=== PATIENT | female | born 1965 | race Caucasian/White ===

== ENCOUNTER 2018-12-06 19:30 | Observation (INO) ==
[2018-12-06] MEDS ORDERED: ALBUT/IPRATROP 3MG/0.5MG NEB 3 ML VIAL INH STA (19:58)
--- NOTE | 2018-12-06 20:27 | XRay Report ---
XR chest 1V portable CLINICAL HISTORY: 53 years-old Female presenting with dyspnea. TECHNIQUE: Portable upright AP view of the chest was obtained. COMPARISON: None. FINDINGS: Cardiac silhouette mildly enlarged. Pulmonary vascular prominence. No focal opacity. No large effusio n or pneumothorax. Osseous structures normal. Upper abdomen normal. IMPRESSION: 1. Mild cardiomegaly and volume overload. No paolo pulmonary edema. Electronically signed by: Obinna Zhao M.D. 12/06/2018 8:25 PM
--- NOTE | 2018-12-06 21:17 | Emergency Department Note ---
Entered by Kika Lau acting as a scribe for History of Present Illness General Chief complaint: Shortness of Breath/Dyspnea Stated complaint: SOB Source: patient and family Mode of arrival: ambulatory Limitations: no limitations History of Present Illness Provider complaint: shortness of breath Onset (ago): hour(s) (earlier today) Location: chest Pain Consistency: + other (episode) Quality: + other (shortness of breath) The patient is a 53 year old female who presents to the Emergency Room with complaints of an episode of shortness of breath that occurred earlier today. The patients group social worker at bedside reports that the she found the patient on the floor in severe distress. Per group social worker, the patient lives with her sister who smokes 3 packs of cigarettes a day, inside the home. The group social worker also states that the patient was not experiencing cold-like symptoms earlier today. Home Medications Home Medications Medication Instructions Recorded Confirmed Type No Known Home Medications 12/06/18 12/06/18 History albuterol sulfate [Ventolin HFA] 2 puff INHALATION Q6 7 Days #1 gm 12/08/18 Rx guaifenesin [Mucinex] 600 mg PO Q12 7 Days #14 tab 12/08/18 Rx lisinopril [Zestril] 10 mg PO QAM 30 Days #30 tab 12/08/18 Rx Allergies Allergy/AdvReac Type Severity Reaction Status Date / Time No Known Allergies Allergy Verified 12/06/18 22:28 NONE ALL TO MERSALINE Allergy Unknown . Uncoded 12/06/18 22:28 STICHES -THEY COME OUT, ARE REJECTED Past Med/Surg History Medical History Intellectual disability Obesity (Chronic) Surgical History S/P hysterectomy done when patient was a teenager for tumor S/P knee surgery Social History Preferred Language: Angolan Beliefs That Will Affect Care: None marital status: Single Current Living Situation: Family current occupational status: disabled Feels Safe at Home: Yes Safety Concerns: Feels Safe At This Time Smoking Status: Never smoker Hx Alcohol Use: No Hx Substance Use: No Review of Systems See HPI for pertinent positives & negatives. and A total of 10 systems reviewed and were otherwise negative Physical Exam Vital Signs Vital Signs - 24 hr 12/07/18 19:41 12/07/18 23:00 12/07/18 23:22 Temperature 37.0 C 36.7 C Temperature Source Oral Oral Pulse Rate Pulse Rate [Apical] Pulse Rate [Brachial] Pulse Rate [Finger] 59 L 47 L Pulse Rhythm [Brachial] Pulse Strength [Brachial] Respiratory Rate 18 20 Respiratory Effort / Characteristics Non-Labored Spontaneous Respiratory Depth Normal Respiratory Pattern Regular Blood Pressure [Left Arm] 122/70 Blood Pressure [Right Arm] 133/78 Blood Pressure Mean [Left Arm] 87 Blood Pressure Mean [Right Arm] 96 Blood Pressure Position [Left Arm] Lying Blood Pressure Position [Right Arm] Lying Pulse Oximetry 94 92 Oxygen Delivery Method Room Air Room Air Room Air 12/08/18 00:57 12/08/18 04:00 12/08/18 07:49 Temperature 36.6 C 36.5 C Temperature Source Oral Oral Pulse Rate 47 L Pulse Rate [Apical] Pulse Rate [Brachial] 47 L Pulse Rate [Finger] 61 Pulse Rhythm [Brachial] Regular Pulse Strength [Brachial] Normal Respiratory Rate 18 16 Respiratory Effort / Characteristics Non-Labored Spontaneous Respiratory Depth Normal Respiratory Pattern Regular Blood Pressure [Left Arm] 154/74 H 127/75 Blood Pressure [Right Arm] Blood Pressure Mean [Left Arm] 100 92 Blood Pressure Mean [Right Arm] Blood Pressure Position [Left Arm] Lying Sitting Blood Pressure Position [Right Arm] Pulse Oximetry 94 92 Oxygen Delivery Method Room Air 12/08/18 09:50 12/08/18 11:57 Temperature 36.5 C Temperature Source Pulse Rate Pulse Rate [Apical] 67 Pulse Rate [Brachial] 47 L Pulse Rate [Finger] 61 Pulse Rhythm [Brachial] Pulse Strength [Brachial] Normal Respiratory Rate 16 Respiratory Effort / Characteristics Respiratory Depth Respiratory Pattern Blood Pressure [Left Arm] 127/75 Blood Pressure [Right Arm] 133/78 Blood Pressure Mean [Left Arm] Blood Pressure Mean [Right Arm] Blood Pressure Position [Left Arm] Blood Pressure Position [Right Arm] Pulse Oximetry 92 Oxygen Delivery Method Vital signs reviewed. General: Well-appearing, obese, in no significant distress. HEENT: No scleral icterus, PERRLA, neck supple. Atraumatic. Cardiovascular: Regular rate and rhythm, no extra sounds. Pulmonary: Wheezing bilaterally, normal work of breathing. Abdomen: Soft, nontender, nondistended, positive bowel sounds. Musculoskeletal: Atraumatic, minimal peripheral edema. Neurologic: Patient awake alert and oriented x 3, full strength in all 4 extremities. Cranial nerves 2 through 12 grossly intact. Skin: Warm, dry, no rash Course 1955: Past medical records reviewed. The patient was evaluated in room C3, and a complete history and physical examination were performed. 2225: I reviewed the patient's case with Dr. Llanos - [facility] Hospitalist. She will evaluate the patient for further management. Administered Medications Discontinued Medications Albuterol (Duoneb) 3 ml INH NOW STA Stop: 12/06/18 19:59 Last Admin: 12/06/18 20:13 Dose: 3 ml Documented by: [id number] Aspirin (Aspirin) 324 mg PO NOW STA Stop: 12/06/18 22:10 Last Admin: 12/06/18 22:23 Dose: 324 mg Documented by: [id number] Furosemide (Lasix) 40 mg IV NOW STA Stop: 12/06/18 22:10 Last Admin: 12/06/18 22:23 Dose: 40 mg Documented by: [id number] Hydralazine HCl (Apresoline) 25 mg PO NOW STA Stop: 12/06/18 20:01 Last Admin: 12/06/18 20:13 Dose: 25 mg Documented by: [id number] Sodium Phosphate 15 mmol/ (Sodium Chloride) 255 mls @ 88 mls/hr IV ONE ONE Stop: 12/07/18 10:23 Last Infusion: 12/07/18 11:33 Dose: 0 mls/hr Documented by: [id number] Admin: 12/07/18 08:20 Dose: 88 mls/hr Documented by: [id number] Influenza Virus Vaccine Quadrival (Flucelvax Quad Vaccine) 0.5 ml IM .ONCE ONE Stop: 12/07/18 08:31 Last Admin: 12/08/18 07:18 Dose: Not Given Documented by: [id number] Lisinopril (Zestril) 10 mg PO QA SHEKHAR Stop: 01/06/19 13:59 Last Admin: 12/08/18 08:36 Dose: 10 mg Documented by: [id number] Admin: 12/07/18 15:36 Dose: 10 mg Documented by: [id number] Perflutren Lipid Microsphere (Definity) 2 ml IV ONCE ONE Stop: 12/07/18 07:53 Last Admin: 12/07/18 07:53 Dose: 2 ml Documented by: [id number] Medical Decision Making Differential Diagnosis Differential diagnoses includes but is not limited to pneumonia, bronchitis, COPD/Asthma exacerbation, pneumothorax, pulmonary embolism, congestive heart failure, and acute coronary syndrome. Medical Records Attestation: I reviewed the patient's medical records. Home Medications Current Medication List: was personally reviewed by me Laboratory Data Attestation: I reviewed the patient's lab results. Result diagrams: 12/07/18 06:45 12/07/18 06:45 Lab Results 12/06/18 12/06/18 12/06/18 Range/Units 21:20 21:20 21:20 WBC 9.71 (4.8-10.8) K/uL RBC 4.69 (4.2-5.4) M/uL Hgb 13.3 (12.0-16.0) g/dL Hct 40.9 (37-47) % MCV 87.2 (80-100) fL MCH 28.4 (25-34) pg MCHC 32.5 (32-36) g/dL RDW Std Deviation 48.0 H (36.4-46.3) fL RDW Coeff of Gabe 15.2 H (11.5-14.5) % Plt Count 162 (130-400) K/uL MPV 10.2 (7.4-10.4) fL Immature Gran % (Auto) 0.4 % Neut % (Auto) 77.5 % Lymph % (Auto) 17.6 % [place] % (Auto) 3.7 % Eos % (Auto) 0.7 % Baso % (Auto) 0.1 % Immature Gran # (Auto) 0.04 H (0.00-0.02) K/uL Neut # (Auto) 7.52 H (1.4-6.5) K/uL Lymph # (Auto) 1.71 (1.2-3.4) K/uL [place] # (Auto) 0.36 (0.11-0.59) K/uL Eos # (Auto) 0.07 (0-0.5) K/uL Baso # (Auto) 0.01 (0-0.2) K/uL Sodium 142 (136-145) mmol/L Potassium 4.4 (3.5-5.1) mmol/L Chloride 113 H (98-107) mmol/L Carbon Dioxide 26 (21-32) mmol/L Anion Gap 4.0 (3-11) BUN 17 (7-18) mg/dl Creatinine 0.64 (0.6-1.2) mg/dl Est Cr Clr Drug Dosing 132.1 ml/min Est GFR ( Amer) 118.9 Est GFR (Non-Af Amer) 102.6 BUN/Creatinine Ratio 26.1 H (10-20) Glucose 112 H (70-99) mg/dl POC Glucose (70-99) Estimat Average Glucose 117 mg/dl Hemoglobin A1c 5.7 H (4.5-5.6) % Calcium 8.1 L (8.5-10.1) mg/dl Phosphorus (2.5-4.9) mg/dl Magnesium (1.8-2.4) mg/dl Total Bilirubin 0.2 (0.2-1) mg/dl AST 20 (15-37) U/L ALT 25 (12-78) U/L Alkaline Phosphatase 108 (45-117) U/L Troponin I 0.054 H* (0-0.045) ng/ml Total Protein 7.6 (6.4-8.2) gm/dl Albumin 3.3 L (3.4-5.0) gm/dl Globulin 4.3 H (2.5-4.0) gm/dl Albumin/Globulin Ratio 0.8 L (0.9-2) Triglycerides (0-150) mg/dl Cholesterol (0-200) mg/dl LDL Cholesterol, Calc mg/dl VLDL Cholesterol, Calc mg/dl HDL Cholesterol mg/dl Cholesterol/HDL Ratio TSH (0.300-4.500) uIu/ml Random Cortisol mcg/dl Specimen Hemolysis 12/06/18 12/07/18 12/07/18 Range/Units 21:20 06:45 06:45 WBC 7.36 (4.8-10.8) K/uL RBC 4.65 (4.2-5.4) M/uL Hgb 13.2 (12.0-16.0) g/dL Hct 40.4 (37-47) % MCV 86.9 (80-100) fL MCH 28.4 (25-34) pg MCHC 32.7 (32-36) g/dL RDW Std Deviation 48.7 H (36.4-46.3) fL RDW Coeff of Gabe 15.4 H (11.5-14.5) % Plt Count 177 (130-400) K/uL MPV 10.5 H (7.4-10.4) fL Immature Gran % (Auto) 0.1 % Neut % (Auto) 56.9 % Lymph % (Auto) 32.3 % [place] % (Auto) 7.9 % Eos % (Auto) 2.7 % Baso % (Auto) 0.1 % Immature Gran # (Auto) 0.01 (0.00-0.02) K/uL Neut # (Auto) 4.18 (1.4-6.5) K/uL Lymph # (Auto) 2.38 (1.2-3.4) K/uL [place] # (Auto) 0.58 (0.11-0.59) K/uL Eos # (Auto) 0.20 (0-0.5) K/uL Baso # (Auto) 0.01 (0-0.2) K/uL Sodium 142 (136-145) mmol/L Potassium 3.6 D (3.5-5.1) mmol/L Chloride 109 H (98-107) mmol/L Carbon Dioxide 28 (21-32) mmol/L Anion Gap 5.0 (3-11) BUN 15 (7-18) mg/dl Creatinine 0.60 (0.6-1.2) mg/dl Est Cr Clr Drug Dosing 139.7 ml/min Est GFR ( Amer) 121.5 Est GFR (Non-Af Amer) 104.8 BUN/Creatinine Ratio 24.0 H (10-20) Glucose 98 (70-99) mg/dl POC Glucose (70-99) Estimat Average Glucose mg/dl Hemoglobin A1c (4.5-5.6) % Calcium 8.2 L (8.5-10.1) mg/dl Phosphorus 1.7 L (2.5-4.9) mg/dl Magnesium 2.1 (1.8-2.4) mg/dl Total Bilirubin (0.2-1) mg/dl AST (15-37) U/L ALT (12-78) U/L Alkaline Phosphatase (45-117) U/L Troponin I 0.075 H* (0-0.045) ng/ml Total Protein (6.4-8.2) gm/dl Albumin (3.4-5.0) gm/dl Globulin (2.5-4.0) gm/dl Albumin/Globulin Ratio (0.9-2) Triglycerides 202 H (0-150) mg/dl Cholesterol 198 (0-200) mg/dl LDL Cholesterol, Calc 122 mg/dl VLDL Cholesterol, Calc 40 mg/dl HDL Cholesterol 36 mg/dl Cholesterol/HDL Ratio 6 TSH 2.530 (0.300-4.500) uIu/ml Random Cortisol mcg/dl Specimen Hemolysis 12/07/18 12/07/18 12/07/18 Range/Units 07:42 12:38 13:57 WBC (4.8-10.8) K/uL RBC (4.2-5.4) M/uL Hgb (12.0-16.0) g/dL Hct (37-47) % MCV (80-100) fL MCH (25-34) pg MCHC (32-36) g/dL RDW Std Deviation (36.4-46.3) fL RDW Coeff of Gabe (11.5-14.5) % Plt Count (130-400) K/uL MPV (7.4-10.4) fL Immature Gran % (Auto) % Neut % (Auto) % Lymph % (Auto) % [place] % (Auto) % Eos % (Auto) % Baso % (Auto) % Immature Gran # (Auto) (0.00-0.02) K/uL Neut # (Auto) (1.4-6.5) K/uL Lymph # (Auto) (1.2-3.4) K/uL [place] # (Auto) (0.11-0.59) K/uL Eos # (Auto) (0-0.5) K/uL Baso # (Auto) (0-0.2) K/uL Sodium (136-145) mmol/L Potassium (3.5-5.1) mmol/L Chloride (98-107) mmol/L Carbon Dioxide (21-32) mmol/L Anion Gap (3-11) BUN (7-18) mg/dl Creatinine (0.6-1.2) mg/dl Est Cr Clr Drug Dosing ml/min Est GFR ( Amer) Est GFR (Non-Af Amer) BUN/Creatinine Ratio (10-20) Glucose (70-99) mg/dl POC Glucose 102 H (70-99) Estimat Average Glucose mg/dl Hemoglobin A1c (4.5-5.6) % Calcium (8.5-10.1) mg/dl Phosphorus (2.5-4.9) mg/dl Magnesium (1.8-2.4) mg/dl Total Bilirubin (0.2-1) mg/dl AST (15-37) U/L ALT (12-78) U/L Alkaline Phosphatase (45-117) U/L Troponin I 0.067 H* (0-0.045) ng/ml Total Protein (6.4-8.2) gm/dl Albumin (3.4-5.0) gm/dl Globulin (2.5-4.0) gm/dl Albumin/Globulin Ratio (0.9-2) Triglycerides (0-150) mg/dl Cholesterol (0-200) mg/dl LDL Cholesterol, Calc mg/dl VLDL Cholesterol, Calc mg/dl HDL Cholesterol mg/dl Cholesterol/HDL Ratio TSH (0.300-4.500) uIu/ml Random Cortisol 6.63 mcg/dl Specimen Hemolysis Imaging Data Radiologist's Impression: Radiology results as stated below per my review and the radiologist's interpretation: XR chest 1V portable CLINICAL HISTORY: 53 years-old Female presenting with dyspnea. TECHNIQUE: Portable upright AP view of the chest was obtained. COMPARISON: None. FINDINGS: Cardiac silhouette mildly enlarged. Pulmonary vascular prominence. No focal opacity. No large effusion or pneumothorax. Osseous structures normal. Upper abdomen normal. IMPRESSION: 1. Mild cardiomegaly and volume overload. No paolo pulmonary edema. Electronically signed by: bOinna Zhao M.D. 12/06/2018 8:25 PM ECG Data Attestation: I personally reviewed and interpreted this ECG as follows: Indication: SOB/dyspnea Rate (beats per minute): 82 Rhythm: sinus with SA Findings: + other (QTC is 446); no acute ischemic change and no ectopy Blood Pressure Blood Pressure Findings: Elevated blood pressure Blood Pressure Disposition: further management by hospitalist JAY Garza This patient was evaluated and appeared to be in no significant distress. IV access was obtained and laboratory work was drawn. EKG was performed and reveals no evidence of acute ischemia. Patient is noted to be fairly hypertensive. Patient was given hydralazine 25 mg p.o. patient was given a DuoNeb treatment for audible wheezing on exam. Laboratory work reveals slightly elevated troponin. Chest x-ray was performed and reveals mild fluid overload. Patient was given Lasix 40 mg IV and aspirin 324 mg p.o. Given the patient's lack of outpatient medical care, hypertension, obesity and fluid overload. Case was discussed with Dr. Llanos of the hospitalist service who has agreed to evaluate the patient for further management. Patient is aware of the plan and agrees. Impression & Plan Congestive heart failure, Elevated troponin Discharge Plan Visit Data *Final* Discharge Date/Time: 12/07/18 00:16 Chief Complaint: Shortness of Breath/Dyspnea Stated Complaint: SOB ED Provider: Kayley Emerson Discharge Problem: Congestive heart failure, Elevated troponin Patient Disposition: Admitted As Inpatient Condition: Fair Discharge Instructions Interventions: ED Discharge Assessment Last Done: 12/07/18 00:16 Discharge Problem: Congestive heart failure Qualifiers: Heart failure type: unspecified Heart failure chronicity: unspecified Qualified Code(s): I50.9 - Heart failure, unspecified The scribe's documentation has been prepared under my direction and personally reviewed by me in its entirety. I confirm that the note above accurately reflects all work, treatment, procedures, and medical decision making performed by me.
[2018-12-06 21:31] LABS: Basophils # (auto) 0.01 K/uL (0-0.2); Basophils % (auto) 0.1 %; Eosinophils # (auto) 0.07 K/uL (0-0.5); Eosinophils % (auto) 0.7 %; Hematocrit (blood only) 40.9 % (37-47); Hemoglobin 13.3 g/dL (12.0-16.0); Immature Granulocytes # (auto) 0.04 K/uL (0.00-0.02); Immature Granulocytes % (auto) 0.4 %; Lymphocytes # (auto) 1.71 K/uL (1.2-3.4); Lymphocytes % (auto) 17.6 %; Mean Corpuscular Hgb Conc 32.5 g/dL (32-36); Mean Corpuscular Volume 87.2 fL (80-100); Mean Platelet Volume 10.2 fL (7.4-10.4); Monocytes # (auto) 0.36 K/uL (0.11-0.59); Monocytes % (auto) 3.7 %; Neutrophils # (auto) 7.52 K/uL (1.4-6.5); Neutrophils % (auto) 77.5 %; Platelet Count 162 K/uL (130-400); RDW Coefficient of Variation 15.2 % (11.5-14.5); Red Blood Count 4.69 M/uL (4.2-5.4); White Blood Count 9.71 K/uL (4.8-10.8)
[2018-12-06 22:03] LABS: Albumin Globulin Ratio 0.8 (0.9-2); Albumin Level 3.3 gm/dl (3.4-5.0); BUN Creatinine Ratio 26.1 (10-20); Bilirubin,Total 0.2 mg/dl (0.2-1); Calcium 8.1 mg/dl (8.5-10.1); Creatinine Clr Calc Pharmacy 132.1 ml/min; Est GFR (African American) 118.9; Est GFR (Non-African American) 102.6; Globulin 4.3 gm/dl (2.5-4.0); Potassium 4.4 mmol/L (3.5-5.1); Total Protein 7.6 gm/dl (6.4-8.2); Troponin I 0.054 ng/ml (0-0.045)
[2018-12-06] MEDS ORDERED: ASPIRIN CHEW 324 MG PO STA (22:09)
[2018-12-06] MEDS ORDERED: FUROSEMIDE 40 MG/4 ML VIAL IV STA (22:09)
--- NOTE | 2018-12-07 00:17 | History & Physical Report ---
Date of Service December 06, 2018 Assessment & Plan (1) Elevated troponin: Patient with mildly elevated troponin at 0.054. No acute ischemic changes appreciated on EKG. She denies CP. ?episodes of dyspnea. Most likely supply- demand mismatch in setting of markedly elevated BP. However, patient has been absent from medical care x 30 years, uncertain what her coronary risk factors are. -Admit to medical floor with telemetry monitoring -Trend cardiac enzymes x 3 sets -Check fasting lipid panel in AM -Check HgAIC -Consider daily ASA -Will check 2D echocardiogram Present on Admission?: Yes (2) Shortness of breath: Patient reports episodes of flushing and wheezing. Unclear etiology at this time. ?hypertensive episodes with flash pulmonary edema, ?underlying arrhythmia, ?carcinoid syndrome with flushing and wheezing (patient denies diarrhea or bowel changes), ?CHF - CXR suggestive of cardiomegaly and volume overload. Also would not be surprised if patient has underlying COPD - she lives in a trailer with her sister who reportedly smokes three packs of cigarettes daily. Presently patient is in no respiratory distress, adequate oxygenation on room air. Pulmonary exam with bibasilar crackles and scattered end-expiratory wheezing throughout -Admit to medical floor as above -Check 2D echo -Supplemental O2 as needed -Albuterol as needed -Patient may benefit from outpatient spirometry for possible asthma/COPD diagnosis (3) Hypertension: Patient with elevated BP on arrival. ?flash pulmonary edema contributing to SOB. No formal diagnosis of HTN, however, patient has been absent from medical care x 30 years -Hydralazine PRN SBP > 180mmHg -Patient will most likely need to be started on antihypertensive agents with close outpatient followup -Continue to monitor (4) Obesity: Recommend lifestyle changes, calorie restriction and frequent exercise -Consider dietary consult F/E/N -Heplock, monitor electrolytes and replete as needed, heart healthy diet as tolerated Ppx - Lovenox Code -Full per discussion with patient Dispo - Med with tele. Case management consult to assist with establishing PCP and followup as well as any placement needs. History of Present Illness Chief Complaint: SOB Primary Care Provider: NO PCP Patient is a 53yo female presenting with shortness of breath. This evening she was coughing and blowing her nose then she reports her face became hot and she became short of breath and began to wheeze. She states that her breathing became very fast and she had palpitations. Her caregiver came to the home and states that the patient was quite short of breath and her face was bright red. She was brought to the ER for further workup. On arrival here she was found to be hypertensive at 198/121. She was tachypneic at 25bpm and saturating 90% on room air. She was administered an albuterol neb treatment, ASA 324mg and Lasix 40mg IV as well as Hydralazine 25mg po. Presently feels well with no complaints. She is nervous to be in the hospital. Patient states she has not seen a physician for appx 30 years. She reports that over the last year she has been having similar episodes as described above. She states that her face becomes red and hot and then she starts wheezing. The episodes occur every 2-3 months and last for approximately 15-20 minutes. The episode tonight was more severe and prolonged than prior episodes. ER Course: Albuterol neb, ASA 324mg po, Lasix 40mg IV, Hydralazine 25mg PO Allergies Allergy/AdvReac Type Severity Reaction Status Date / Time No Known Allergies Allergy Verified 12/06/18 22:28 NONE ALL TO MERSALINE Allergy Unknown . Uncoded 12/06/18 22:28 STICHES -THEY COME OUT, ARE REJECTED Home Medications Home Medications Medication Instructions Recorded Confirmed Type No Known Home Medications 12/06/18 12/06/18 History Past Med/Surg History Medical History Intellectual disability Obesity (Chronic) Surgical History S/P hysterectomy done when patient was a teenager for tumor S/P knee surgery Family History Other Cancer Coronary heart disease Social History Communication Ability: Effective Hearing Ability: Normal marital status: Single Current Living Situation: Family current occupational status: disabled Feels Safe at Home: Yes Smoking Status: Never smoker Hx Alcohol Use: No Hx Substance Use: No Review of Systems All systems reviewed & are unremarkable except as noted in HPI & below Patient endorses occasional palpitations as well as cold intolerance Physical Exam Vital Signs (Past 24 Hours): Last Vital Signs Temp 37.2 C 12/06/18 19:37 Pulse 83 12/06/18 23:43 Resp 20 12/06/18 23:43 BP 143/88 H 12/06/18 23:43 Pulse Ox 91 12/06/18 23:43 Physical Exam: General: patient AA&O x 4, non-toxic in appearance, poorly kempt, NAD Skin: warm, dry, intact, no rashes/lesions, redness of cheeks HEENT: NC/AT, PERRL, EOMI, anicteric sclera, conjunctiva without injection, cerumen impaction in right ear, nares patent, MMM, poor dentition, neck supple, no JVD, trachea midline, no LAD Heart: +S1/S2, regular, no m/r/g Lungs: equal air entry bilaterally, crackles in bilateral bases, end-expiratory wheezing throughout Abd: obese, soft, NT/ND, no masses/organomegaly, well healed surgical scar Ext: warm, 2+ pulses, no clubbing/cyanosis or edema Neuro: nonfocal Results & Data Laboratory Results Lab Results 12/06/18 12/06/18 Range/Units 21:20 21:20 WBC 9.71 (4.8-10.8) K/uL RBC 4.69 (4.2-5.4) M/uL Hgb 13.3 (12.0-16.0) g/dL Hct 40.9 (37-47) % MCV 87.2 (80-100) fL MCH 28.4 (25-34) pg MCHC 32.5 (32-36) g/dL RDW Std Deviation 48.0 H (36.4-46.3) fL RDW Coeff of Gabe 15.2 H (11.5-14.5) % Plt Count 162 (130-400) K/uL MPV 10.2 (7.4-10.4) fL Immature Gran % (Auto) 0.4 % Neut % (Auto) 77.5 % Lymph % (Auto) 17.6 % [place] % (Auto) 3.7 % Eos % (Auto) 0.7 % Baso % (Auto) 0.1 % Immature Gran # (Auto) 0.04 H (0.00-0.02) K/uL Neut # (Auto) 7.52 H (1.4-6.5) K/uL Lymph # (Auto) 1.71 (1.2-3.4) K/uL [place] # (Auto) 0.36 (0.11-0.59) K/uL Eos # (Auto) 0.07 (0-0.5) K/uL Baso # (Auto) 0.01 (0-0.2) K/uL Sodium 142 (136-145) mmol/L Potassium 4.4 (3.5-5.1) mmol/L Chloride 113 H (98-107) mmol/L Carbon Dioxide 26 (21-32) mmol/L Anion Gap 4.0 (3-11) BUN 17 (7-18) mg/dl Creatinine 0.64 (0.6-1.2) mg/dl Est Cr Clr Drug Dosing 132.1 ml/min Est GFR ( Amer) 118.9 Est GFR (Non-Af Amer) 102.6 BUN/Creatinine Ratio 26.1 H (10-20) Glucose 112 H (70-99) mg/dl Calcium 8.1 L (8.5-10.1) mg/dl Total Bilirubin 0.2 (0.2-1) mg/dl AST 20 (15-37) U/L ALT 25 (12-78) U/L Alkaline Phosphatase 108 (45-117) U/L Troponin I 0.054 H* (0-0.045) ng/ml Total Protein 7.6 (6.4-8.2) gm/dl Albumin 3.3 L (3.4-5.0) gm/dl Globulin 4.3 H (2.5-4.0) gm/dl Albumin/Globulin Ratio 0.8 L (0.9-2) Specimen Hemolysis Diagnostic Findings [place], [place] [phone] XRay Report Patient: QIANA DE LA CRUZ Date: 12/06/18 MR#: [id number]: [id number] Acct ID:[id number]: Date: 1965[facility] Zip: [place] [address] Age: 53Location: ED Sex: F Room/Bed: Att Phy: Diagnosis: SOB Shabana Phy: PCP,NO Service Date: 12/06/18 Fam Phy: Interpreting Phy: Obinna Zhao MD Admit Phy: Ordering Phy: Kayley Emerson M.D. cc: ~ XR chest 1V portable CLINICAL HISTORY: 53 years-old Female presenting with dyspnea. TECHNIQUE: Portable upright AP view of the chest was obtained. COMPARISON: None. FINDINGS: Cardiac silhouette mildly enlarged. Pulmonary vascular prominence. No focal opacity. No large effusion or pneumothorax. Osseous structures normal. Upper abdomen normal. IMPRESSION: 1. Mild cardiomegaly and volume overload. No paolo pulmonary edema. Electronically signed by: Obinna Zhao M.D. 12/06/2018 8:25 PM Dictated: 12/06/182024 Transcribed: 12/06/182024 ECG Additional Comments: The study shows NSR at 82bpm, normal axis, DW=232, QRS=84, SBi=615, no acute ischemic changes, no LVH Code Status & VTE Plan Code Status FULL VTE Prophylaxis Plan VTE Prophylaxis will be ordered: Yes Critical Care Time Critical Care Time: No (1) Hypertension Hypertension type: essential hypertension Qualified Code(s): I10 - Essential (primary) hypertension (2) Obesity Obesity type: due to excess calories Obesity classification: adult class 3 (BMI >= 40) Serious obesity comorbidity presence: unspecified whether serious comorbidity present Body mass index: BMI 45.0-49.9 Qualified Code(s): E66.01 - Morbid (severe) obesity due to excess calories; Z68.42 - Body mass index (BMI) 45.0-49.9, adult
[2018-12-07] MEDS ORDERED: ALBUTEROL 0.5% NEB SOLN 2.5 MG/0.5 ML VIAL NEB PRN (00:47)
[2018-12-07] MEDS ORDERED: HydrALAZINE HCL 20 MG/ML VIAL IV PRN (00:47)
[2018-12-07] MEDS ORDERED: ACETAMINOPHEN 325 MG TAB PO PRN (00:47)
[2018-12-07 01:40] LABS: Magnesium 2.1 mg/dl (1.8-2.4); Phosphorus 1.7 mg/dl (2.5-4.9)
[2018-12-07 06:40] LABS: Estimated Average Glucose 117 mg/dl; Hemoglobin A1C 5.7 % (4.5-5.6)
[2018-12-07] MEDS ORDERED: SODIUM PHOSPHATE 3 MMOL/1 ML INFUSION IV STA (06:49)
[2018-12-07 07:03] LABS: Basophils # (auto) 0.01 K/uL (0-0.2); Basophils % (auto) 0.1 %; Eosinophils % (auto) 2.7 %; Hematocrit (blood only) 40.4 % (37-47); Hemoglobin 13.2 g/dL (12.0-16.0); Immature Granulocytes # (auto) 0.01 K/uL (0.00-0.02); Immature Granulocytes % (auto) 0.1 %; Lymphocytes # (auto) 2.38 K/uL (1.2-3.4); Lymphocytes % (auto) 32.3 %; Mean Corpuscular Hgb Conc 32.7 g/dL (32-36); Mean Corpuscular Volume 86.9 fL (80-100); Mean Platelet Volume 10.5 fL (7.4-10.4); Monocytes # (auto) 0.58 K/uL (0.11-0.59); Monocytes % (auto) 7.9 %; Neutrophils # (auto) 4.18 K/uL (1.4-6.5); Neutrophils % (auto) 56.9 %; Platelet Count 177 K/uL (130-400); RDW Coefficient of Variation 15.4 % (11.5-14.5); RDW Standard Deviation 48.7 fL (36.4-46.3); Red Blood Count 4.65 M/uL (4.2-5.4); White Blood Count 7.36 K/uL (4.8-10.8)
[2018-12-07] MEDS ORDERED: SODIUM PHOSPHATE 15 MMOL in SODIUM CHLORIDE 0.9% 250 ML IV ONE (07:30)
[2018-12-07 07:32] LABS: Calcium 8.2 mg/dl (8.5-10.1); Creatinine Clr Calc Pharmacy 139.7 ml/min; Est GFR (African American) 121.5; Est GFR (Non-African American) 104.8; Potassium 3.6 mmol/L (3.5-5.1)
[2018-12-07 07:41] LABS: Troponin I 0.075 ng/ml (0-0.045)
[2018-12-07] MEDS ORDERED: PERFLUTREN LIPID MICROSPHERE (DEFINITY) IV ONE (07:52)
[2018-12-07] MEDS ORDERED: INFLUENZA ADMINISTRATION CHARGE ONE (08:30)
[2018-12-07] MEDS ORDERED: INFLUENZA VIRUS QUAD VACCINE 0.5 ML SYR IM ONE (08:30)
--- NOTE | 2018-12-07 15:28 | Hospitalist Progress Note ---
Date of Service December 07, 2018 Assessment & Plan (1) Elevated troponin: (2) Shortness of breath: (3) Hypertension: (4) Obesity: 53-year-old white female relapsing a family doctor for more than 40 years, admitted because of hypertension emergency which is associated with acute pulmonary edema and elevated troponin Hypertension emergency which is supported by acute pulmonary edema and elevated troponin, improved Elevated troponin, has trends down, obviously from muscle sprain when sign ificant accelerated hypertension, Echo shows normal LVEF, Acute shortness of breath upon arriving to the emergency room associated with episodes of flushing and wheezing. U This is likely because of hypertensive episodes with flash pulmonary edema, Under differential diagnosis include asthma, Obesity hypoventilation syndrome Patient is secondhand smoker Resolved Hypertension emergency, Did not see family doctor for many years, no PCP Start on lisinopril p.o. Check difficult controlled hypertension such as pheochromocytoma, [place] syndrome, Conn syndrome, renal artery stenosis, etc. Morbid obesity, Consult dietitian to discuss above option of diet and lifestyle modification improvement manager consult for discharge plan navigator to set up PCP for outpatient follow-up Subjective Occasional cough nonproductive, denies wheezing, no fever and chill Lower extremities trace edema denies chest pain denied palpitation, Denies nausea vomiting abdominal pain diarrhea constipation Denies dysuria urgency and frequency Physical Exam Vital Signs (Past 24 Hours): Last Vital Signs Temp 36.8 C 12/07/18 11:36 Pulse 64 12/07/18 11:36 Resp 20 12/07/18 11:36 BP 147/86 H 12/07/18 11:36 Pulse Ox 94 12/07/18 11:36 Physical Exam: General: Obesity, look tired, AA&O x 4, non-toxic in appearance, Skin: warm, dry, intact, no rashes/lesions, redness of cheeks HEENT: NC/AT, PERRL, EOMI, anicteric sclera, conjunctiva without injection, cerumen impaction in right ear, nares patent, MMM, poor dentition, neck supple, no JVD, trachea midline, no LAD Heart: +S1/S2, regular, no m/r/g Lungs: equal air entry bilaterally, crackles in bilateral bases, end-expiratory wheezing throughout Abd: obese, soft, NT/ND, no masses/organomegaly, well healed surgical scar Ext: Trace edema, warm, 2+ pulses, no clubbing/cyanosis Neuro: nonfocal Results & Data Laboratory Results Laboratory Results - last 24 hr 12/06/18 12/06/18 12/06/18 21:20 21:20 21:20 WBC 9.71 RBC 4.69 Hgb 13.3 Hct 40.9 MCV 87.2 MCH 28.4 MCHC 32.5 RDW Std Deviation 48.0 H RDW Coeff of Gabe 15.2 H Plt Count 162 MPV 10.2 Immature Gran % (Auto) 0.4 Neut % (Auto) 77.5 Lymph % (Auto) 17.6 Weber % (Auto) 3.7 Eos % (Auto) 0.7 Baso % (Auto) 0.1 Immature Gran # (Auto) 0.04 H Neut # (Auto) 7.52 H Lymph # (Auto) 1.71 Weber # (Auto) 0.36 Eos # (Auto) 0.07 Baso # (Auto) 0.01 Sodium 142 Potassium 4.4 Chloride 113 H Carbon Dioxide 26 Anion Gap 4.0 BUN 17 Creatinine 0.64 Est Cr Clr Drug Dosing 132.1 Est GFR ( Amer) 118.9 Est GFR (Non-Af Amer) 102.6 BUN/Creatinine Ratio 26.1 H Glucose 112 H POC Glucose Estimat Average Glucose 117 Hemoglobin A1c 5.7 H Calcium 8.1 L Phosphorus Magnesium Total Bilirubin 0.2 AST 20 ALT 25 Alkaline Phosphatase 108 Troponin I 0.054 H* Total Protein 7.6 Albumin 3.3 L Globulin 4.3 H Albumin/Globulin Ratio 0.8 L Triglycerides Cholesterol LDL Cholesterol, Calc VLDL Cholesterol, Calc HDL Cholesterol Cholesterol/HDL Ratio TSH Random Cortisol Specimen Hemolysis 12/06/18 12/07/18 12/07/18 21:20 06:45 06:45 WBC 7.36 RBC 4.65 Hgb 13.2 Hct 40.4 MCV 86.9 MCH 28.4 MCHC 32.7 RDW Std Deviation 48.7 H RDW Coeff of Gabe 15.4 H Plt Count 177 MPV 10.5 H Immature Gran % (Auto) 0.1 Neut % (Auto) 56.9 Lymph % (Auto) 32.3 Weber % (Auto) 7.9 Eos % (Auto) 2.7 Baso % (Auto) 0.1 Immature Gran # (Auto) 0.01 Neut # (Auto) 4.18 Lymph # (Auto) 2.38 Weber # (Auto) 0.58 Eos # (Auto) 0.20 Baso # (Auto) 0.01 Sodium 142 Potassium 3.6 D Chloride 109 H Carbon Dioxide 28 Anion Gap 5.0 BUN 15 Creatinine 0.60 Est Cr Clr Drug Dosing 139.7 Est GFR ( Amer) 121.5 Est GFR (Non-Af Amer) 104.8 BUN/Creatinine Ratio 24.0 H Glucose 98 POC Glucose Estimat Average Glucose Hemoglobin A1c Calcium 8.2 L Phosphorus 1.7 L Magnesium 2.1 Total Bilirubin AST ALT Alkaline Phosphatase Troponin I 0.075 H* Total Protein Albumin Globulin Albumin/Globulin Ratio Triglycerides 202 H Cholesterol 198 LDL Cholesterol, Calc 122 VLDL Cholesterol, Calc 40 HDL Cholesterol 36 Cholesterol/HDL Ratio 6 TSH 2.530 Random Cortisol Specimen Hemolysis 12/07/18 12/07/18 12/07/18 07:42 12:38 13:57 WBC RBC Hgb Hct MCV MCH MCHC RDW Std Deviation RDW Coeff of Gabe Plt Count MPV Immature Gran % (Auto) Neut % (Auto) Lymph % (Auto) Weber % (Auto) Eos % (Auto) Baso % (Auto) Immature Gran # (Auto) Neut # (Auto) Lymph # (Auto) Weber # (Auto) Eos # (Auto) Baso # (Auto) Sodium Potassium Chloride Carbon Dioxide Anion Gap BUN Creatinine Est Cr Clr Drug Dosing Est GFR ( Amer) Est GFR (Non-Af Amer) BUN/Creatinine Ratio Glucose POC Glucose 102 H Estimat Average Glucose Hemoglobin A1c Calcium Phosphorus Magnesium Total Bilirubin AST ALT Alkaline Phosphatase Troponin I 0.067 H* Total Protein Albumin Globulin Albumin/Globulin Ratio Triglycerides Cholesterol LDL Cholesterol, Calc VLDL Cholesterol, Calc HDL Cholesterol Cholesterol/HDL Ratio TSH Random Cortisol 6.63 Specimen Hemolysis (1) Hypertension Hypertension type: essential hypertension Qualified Code(s): I10 - Essential (primary) hypertension (2) Obesity Obesity type: due to excess calories Obesity classification: adult class 3 (BMI >= 40) Serious obesity comorbidity presence: unspecified whether serious comorbidity present Body mass index: BMI 45.0-49.9 Qualified Code(s): E66.01 - Morbid (severe) obesity due to excess calories; Z68.42 - Body mass index (BMI) 45.0-49.9, adult
[2018-12-07] MEDS: LISINOPRIL 10 MG TAB PO SCH (15:36)
--- NOTE | 2018-12-07 18:44 | Ultrasound Report ---
US duplex renal artery CLINICAL HISTORY: 53 years-old Female presenting with accelerated HTN. TECHNIQUE: Real-time grayscale and color and spectral Doppler ultrasound imaging of the kidneys was p erformed. COMPARISON: None. FINDINGS: RIGHT: Normal echogenicity of renal parenchyma. Right kidney measures 11.8 cm. No hydronephrosis. No convinc ing evidence of calculus or mass. Intrarenal resistive indices range from 0.64 to 0.68. Normal intrarenal arterial waveforms. Renal art rip patent with peak systolic velocity 171 cm/s proximally, 96 cm/s in the midportion, and 84 cm/s di stally. Renal vein patent. LEFT: Normal echogenicity of renal parenchyma. Left kidney measures 12.6 cm. No hydronephrosis. No convinci ng evidence of calculus or mass. Intrarenal resistive indices range from 0.60 to 0.62. Normal intrarenal arterial waveforms. Renal art rip patent with peak systolic velocity 105 cm/s proximally, 149 cm/s in the midportion, and 90 cm/s d istally. Renal vein patent. Abdominal aorta: Patent. Peak systolic velocity 145 cm/s. Ratio of right renal artery PSV/aortic PSV: 1.2. Ratio of left renal artery PSV/aortic PSV: 1.0. Bladder: Not interrogated. Other: None. Reference ranges: Normal main renal artery peak systolic velocity less than 180 cm/s. Ratio of renal artery PSV to aort ic PSV less than 3.5 equates to normal or less than 60% stenosis. Only one of the two criteria listed needs to be met for diagnosis. IMPRESSION: 1. No evidence of renal artery stenosis. Electronically signed by: Obinna Zhao M.D. 12/07/2018 6:43 PM
[2018-12-08 07:50] VITALS: TEMP 97.7; O2SAT 92
[2018-12-08] MEDS: LISINOPRIL 10 MG TAB PO SCH (08:36)
[2018-12-08 11:58] VITALS: BP 133/78; PULSE 67
[2018-12-08] MEDS ORDERED: ALBUTEROL HFA 8 GM INHALER INH SCH (12:00)
--- NOTE | 2018-12-08 14:41 | Discharge Summary ---
Date of Service December 08, 2018 Admission HPI Per Admitting Provider Patient is a 53yo female presenting with shortness of breath. This evening she was coughing and blowing her nose then she reports her face became hot and she became short of breath and began to wheeze. She states that her breathing became very fast and she had palpitations. Her caregiver came to the home and states that the patient was quite short of breath and her face was bright red. She was brought to the ER for further workup. On arrival here she was found to be hypertensive at 198/121. She was tachypneic at 25bpm and saturating 90% on room air. She was administered an albuterol neb treatment, ASA 324mg and Lasix 40mg IV as well as Hydralazine 25mg po. Presently feels well with no complaints. She is nervous to be in the hospital. Patient states she has not seen a physician for appx 30 years. She reports that over the last year she has been having similar episodes as described above. She states that her face becomes red and hot and then she starts wheezing. The episodes occur every 2-3 months and last for approximately 15-20 minutes. The episode tonight was more severe and prolonged than prior episodes. ER Course: Albuterol neb, ASA 324mg po, Lasix 40mg IV, Hydralazine 25mg PO Principal Diagnosis no Discharge Data Allergies Allergy/AdvReac Type Severity Reaction Status Date / Time No Known Allergies Allergy Verified 12/06/18 22:28 NONE ALL TO MERSALINE Allergy Unknown . Uncoded 12/06/18 22:28 STICHES -THEY COME OUT, ARE REJECTED Consultations 12/07/18 00:47 Consult Case Management - Discharge Planning Routine 12/07/18 13:51 Consult Case Management - Discharge Planning Routine Ordered Studies 12/07/18 13:51 US duplex renal artery Stat Hospital Course (1) Elevated troponin: (2) Shortness of breath: (3) Hypertension: (4) Obesity: 53-year-old white female relapsing a family doctor for more than 40 years, admi tted because of hypertension emergency which is associated with acute pulmonary edema and elevated troponin Hypertension emergency which is supported by acute pulmonary edema and elevated troponin, improved, and has been stable Elevated troponin, has trends down, obviously from muscle sprain when significant accelerated hypertension, Echo shows normal LVEF, Acute shortness of breath upon arriving to the emergency room associated with episodes of flushing and wheezing. This is likely because of hypertensive episodes with flash pulmonary edema, Under differential diagnosis include asthma, Obesity hypoventilation syndrome Patient is secondhand smoker Resolved Hypertension emergency, Did not see family doctor for many years, no PCP Start on lisinopril p.o. today's blood pressure is stable Check difficult controlled hypertension such as pheochromocytoma, [place] syndrome, Conn syndrome, renal artery stenosis, etc. TSH normal cortisol is normal, bilateral renal artery Doppler ultrasound was done , No evidence of renal artery stenosis. other lab need to follow-up with PCP which include rening, Aldactone level, fractionated metanephrine level etc., Morbid obesity, Consult dietitian to discuss above option of diet and lifestyle modification manager army consult for discharge plan navigator to set up PCP for outpatient follow-up, patient has appointment with PCP has bradycardia as well, is asymptomatic Subjective upon discharge Occasional cough nonproductive, denies wheezing, no fever and chill Lower extremities trace edema Review of system at discharge denies chest pain denied palpitation, Denies nausea vomiting abdominal pain diarrhea constipation Denies dysuria urgency and frequency Denies facial droop or slurry speech or weakness Physical Exam at discharge General: Obesity, look tired, AA&O x 4, non-toxic in appearance, Skin: warm, dry, intact, no rashes/lesions, redness of cheeks HEENT: NC/AT, PERRL, EOMI, anicteric sclera, conjunctiva without injection, trachea midline, no LAD Heart: +S1/S2, regular, no m/r/g Lungs: equal air entry bilaterally, right lower lung mild end-expiratory wheezing Abd: obese, soft, NT/ND, no masses/organomegaly, well healed surgical scar Ext: Trace edema, warm, 2+ pulses, no clubbing/cyanosis Neuro: nonfocal Lab data upon discharge Laboratory Results - last 24 hr 12/07/18 13:57 Random Cortisol 6.63 Total Time Total Time Spent Total Time Spent (In Minutes): 35 Total Time Includes: Examination of the Patient, Discharge Planning, Medication Reconciliation and Communication With Other Providers Discharge Plan Discharge Items Patient Disposition: Home - Self-Care Reason For Visit: SOB Discharge Diagnosis: hypertension emergency bradycardia possible sleep apnea Condition: Fair Discharge Goals: Decrease discomfort, Diagnostic testing, Improve disease control, Improve function and Increase independence Activity: Resume your previous activity Non-emergency contact: Primary Care Provider Call non-emergency contact if: you have any medication questions Follow-up/Referrals: Dr. Alia Mcdonough [Other] (Please, follow up with Dr. Alia Mcdonough on TuesdayDecember 13 at 12:45 pm. *She will be your new primary care provider. If you need to change this appointment, call the office at [phone].) Diet: Heart Healthy and Low Sodium (2gm) Addtl Provider Instructions: you possible have hypertension emergency you have bradycardia you are much over weight Start on lisinopril which is new medicine you need to follow up with pcp for all of the above conditions I check labs for the tests of pheochromocytoma, Ben syndrome, Conn syndrome, renal artery stenosis, etc.please follow up with pcp for the final results you need to follow up with your primary care physician in 1 week, - take medication as instructed, never overdose or any misuse, or take with alcohol, because misuse of medicine may cause organ damage or , call me, or your primary care physician if have questions of discharge medicaitons. - call your primary care physician, or go to local emergency room if has any fever/chill, chest pain, shortness of breathing, nausea/vomiting/abdominal pain, facial droop/slurry speech/local weakness, or if has any questions. - fall precaution - diet as instructed - you need to follow up with your subspecialist, such as Prescriptions: New lisinopril [Zestril] 10 mg Tablet 10 mg PO QAM 30 Days Qty: 30 RF: 0 albuterol sulfate [Ventolin HFA] 90 mcg/actuation Hfa Aerosol Inhaler 2 puff Inhalation Q6 7 Days Qty: 1 RF: 0 guaifenesin [Mucinex] 600 mg Tablet Extended Release 12hr 600 mg PO Q12 7 Days Qty: 14 RF: 0 No Action No Known Home Medications RF: 0 Stand-Alone Forms: [facility] Discharge Orders: Discharge Order (Routine); Ordered 12/08/18 Ordered By: Gerald Burnett Admission Data Admit Date/Time: 12/06/18 23:43 Attending Provider: Gerald Burnett Admit Provider: Kezia Llanos Primary Care Provider: Alia Ramos Other Providers: Kezia Llanos Service: Telemetry Medical Other Interventions: Discharge Summary Assessment (RN) Last Done: 12/08/18 11:57 DC Date/Time DO NOT enter until pt leaves facility: 12/08/18 12:05
[2018-12-08] MEDS ORDERED: guaiFENesin 600 MG TABCR PO SCH (21:00)
[2018-12-13 20:22] LABS: Metanephrine, Plasma <25 pg/mL (<=57); Normetanephrine Plasma 56 pg/mL (<=148); Total Metanephrine Plasma 56 pg/mL (<=205)
== END 2018-12-08 12:05 | disposition home or self-care (01) ==
LOC: ED 19:30 → INTOOBSV 23:43 → SUATTDRO 23:43 → 2N 23:43

== ENCOUNTER 2022-09-06 11:59 | Observation (INO) ==
--- NOTE | 2022-09-06 12:12 | Emergency Department Note ---
History of Present Illness General Chief complaint: Knee Injury/Pain Time Seen by Provider: 09/06/22 12:11 History of Present Illness Maximum Pain Intensity: 2 This is a 57-year-old female that presents to the emergency department via EMS with complaints of "fall". The patient notes that she has fallen twice today. She is accompanied by her returned case inspector. Patient notes the first time she fell she was headed to the table and fell as she was "thinking" /concentrating about not falling. She notes that the second fall occurred as she was standing for a bit of time and her left leg locked and then her left knee gave out on her. She states that this is not unusual but normally is with her right knee. She does note a history of knee surgery performed at [facility]. Patient does note on the second fall she did strike the back of her head. Patient notes that she does take warfarin. Presently she notes minimal pain in the left knee. No other areas of pain. No chest pain or shortness of breath. No preceding dizziness or lightheadedness. Home Medications Medication Instructions Recorded Confirmed Type albuterol sulfate 90 mcg/actuation 2 puff inhalation Q4H PRN 02/06/19 12/23/20 History aerosol inhaler Shortness Of Breath Or Wheezing cholecalciferol (vitamin D3) 50 1 tab PO QAM 02/06/19 12/23/20 History mcg (2,000 unit) capsule (Vitamin D3) lisinopril 10 mg tablet 10 mg PO QAM 02/06/19 12/23/20 History metronidazole 0.75 % topical cream 1 applic topical QA face/cheeks 02/06/19 12/23/20 History atorvastatin 20 mg tablet 20 mg PO PM 11/28/20 12/23/20 History metoprolol succinate 25 mg 25 mg PO QAM 11/28/20 12/23/20 History tablet,extended release 24 hr sertraline 50 mg tablet 50 mg PO QAM 11/28/20 12/23/20 History warfarin 5 mg tablet 7.5 mg PO 3XWK 11/28/20 12/23/20 History warfarin 5 mg tablet 10 mg PO 4XWK 11/28/20 12/23/20 History Allergies Allergy/AdvReac Type Severity Reaction Status Date / Time No Known Allergies Allergy Verified 12/23/20 09:14 NONE ALL TO MERSALINE Allergy Unknown . Uncoded 12/23/20 09:14 STICHES -THEY COME OUT, ARE REJECTED Past Med/Surg History Medical History Atrial fibrillation follows with Dr. North--on warfarin Borderline diabetes mellitus Congestive heart failure Depression History of anesthesia reaction woke up during surgical procedures Intellectual disability Morbid obesity with BMI of 45.0-49.9, adult Obesity Osteoarthritis Sleep apnea cpap Surgical History History of colonoscopy with polypectomy History of left cataract extraction History of wisdom tooth extraction S/P hysterectomy done when patient was a teenager for tumor--rae bso S/P knee surgery right Family History Other Cancer Coronary heart disease No family history of adverse response to anesthesia Social History Smoking Status: Never smoker Second Hand Exposure: No; Hx Alcohol Use: No Hx Substance Use: No Preferred Language: Mongolian Communication Ability: Effective Hearing Ability: Normal Offset Press Operator Required: No Beliefs That Will Affect Care: None marital status: Single Current Living Situation: Alone current occupational status: disabled Feels Safe at Home: Yes Assistive Devices: CPAP and Glasses Review of Systems A total of 10 systems reviewed and were otherwise negative Physical Exam Vital Signs Vital Signs - 24 hr 09/06/22 12:04 09/06/22 14:20 Temperature 36.5 C Temperature Source Temporal Artery Scan Pulse Rate 60 Pulse Rate [Right Finger] 70 Pulse Rhythm Regular Respiratory Rate 20 18 Respiratory Effort / Characteristics Non-Labored Spontaneous Respiratory Depth Normal Normal Blood Pressure 108/72 Blood Pressure [Right Arm] 166/109 H Blood Pressure Mean 84 Blood Pressure Mean [Right Arm] 128 Pulse Oximetry 98 97 Oxygen Delivery Method Room Air Sepsis Recent Fever Within 48 Hours No Sepsis New/Unexplained Change in Mental Status No Sepsis Action Taken by Nursing No Action Required VITAL SIGNS - Vital signs and nursing notes were reviewed. Stable and afebrile. GENERAL -57-year-old female appearing her stated age who is in no acute distress. Communicates well with provider and answers questions appropriately. SKIN -dorsal right hand mildly erythematous/edematous with some contusions. There are a few punctate scabbed regions overlying the first MCP joint region with overlying erythema. No tenderness. No crepitus. HEAD - NC/AT. EYES - PERRL with EOMI bilaterally. Sclera anicteric. EARS - No deformities of external structures noted on gross examination bilaterally. NOSE - Midline and without cyanosis. No epistaxis or purulent drainage noted. S MOUTH/OROPHARYNX - Without perioral cyanosis. NECK - Neck with FROM. No nuchal rigidity. LUNGS - Chest wall symmetric without accessory muscle use, intercostals retractions, or central cyanosis. Normal vesicular breath sounds CTA B/L. No wheezes, rales, or rhonchi appreciated. CARDIAC - RRR EXTREMITIES - No clubbing or peripheral cyanosis. Left and right knee nontender to palpation. Preserved active range of motion of the right lower and left lower extremity noted. Dorsalis pedis pulse within normal limits bilaterally. No break in the integument. No deformity. +5/5 strength noted in UE/LE bilaterally. NEUROLOGIC - Cranial nerves II through XII grossly intact. PSYCH - A&Ox3 and cooperates fully with examiner. Pt is very pleasant and interacts well with examiner. Course Administered Medications Discontinued Medications Phytonadione 5 mg/ Dextrose 50.5 mls @ 101 mls/hr IV ONE ONE Stop: 09/06/22 16: Last Infusion: 09/06/22 16:57 Dose: 0 mls/hr Documented By: Admin: 09/06/22 16:27 Dose: 101 mls/hr Documented By: MARJORIE Medical Decision Making Laboratory Data Result diagrams: 09/06/22 12:30 09/06/22 12:30 Lab Results 09/06/22 09/06/22 09/06/22 Range/Units 12:30 12:30 12:30 WBC 6.41 (4.8-10.8) K/ul RBC 4.32 (3.93-5.22) M/uL Hgb 12.1 (12.0-16.0) g/dl Hct 37.2 (34.1-44.9) % MCV 86.1 (80.0-100.0) fL MCH 28.0 (25.0-34.0) pg MCHC 32.5 (32.0-36.0) g/dL RDW Std Deviation 47.8 H (36.4-46.3) fL RDW Coeff of Gabe 15.0 H (11.5-14.5) % Plt Count 179 (130-400) K/uL MPV 11.1 (9.4-12.3) fL Immature Gran % (Auto) 0.3 % Neut % (Auto) 66.3 % Lymph % (Auto) 23.2 % [place] % (Auto) 9.4 % Eos % (Auto) 0.5 % Baso % (Auto) 0.3 % Neut # (Auto) 4.25 (1.4-6.5) K/uL Lymph # (Auto) 1.49 (1.2-3.4) K/uL [place] # (Auto) 0.60 (0.24-0.82) K/uL Eos # (Auto) 0.03 (0-0.50) K/uL Baso # (Auto) 0.02 (0-0.2) K/uL Immature Gran # (Auto) 0.02 (0.00-0.02) K/uL PT Cancelled INR Cancelled APTT Cancelled PTT Ratio Cancelled Sodium 140 (136-145) mmol/L Potassium 3.7 (3.5-5.1) mmol/L Chloride 105 (98-107) mmol/L Carbon Dioxide 25 (21-32) mmol/L Anion Gap 10 (3-11) BUN 14 (6-23) mg/dl Creatinine 0.75 (0.6-1.2) mg/dl Est Cr Clr Drug Dosing Not Reportable Est GFR ( Amer) 103.3 ml/min Est GFR (Non-Af Amer) 89.1 ml/min BUN/Creatinine Ratio 18.7 (10-20) Glucose 97 (70-99(Fasting)) mg/dl Calcium 8.5 (8.5-10.1) mg/dl Total Bilirubin 0.8 (0.2-1.0) mg/dl AST 17 (13-39) U/L ALT 13 (7-52) U/L Alkaline Phosphatase 103 (34-104) U/L Total Protein 7.1 (6.0-8.3) gm/dl Albumin 4.1 (3.4-5.0) gm/dl Globulin 3.0 (2.5-4.0) gm/dl Albumin/Globulin Ratio 1.4 (0.9-2) SARS-CoV-2, RNA, NAAT (NEGATIVE) 09/06/22 09/06/22 Range/Units 13:52 16:52 WBC (4.8-10.8) K/ul RBC (3.93-5.22) M/uL Hgb (12.0-16.0) g/dl Hct (34.1-44.9) % MCV (80.0-100.0) fL MCH (25.0-34.0) pg MCHC (32.0-36.0) g/dL RDW Std Deviation (36.4-46.3) fL RDW Coeff of Gabe (11.5-14.5) % Plt Count (130-400) K/uL MPV (9.4-12.3) fL Immature Gran % (Auto) % Neut % (Auto) % Lymph % (Auto) % [place] % (Auto) % Eos % (Auto) % Baso % (Auto) % Neut # (Auto) (1.4-6.5) K/uL Lymph # (Auto) (1.2-3.4) K/uL [place] # (Auto) (0.24-0.82) K/uL Eos # (Auto) (0-0.50) K/uL Baso # (Auto) (0-0.2) K/uL Immature Gran # (Auto) (0.00-0.02) K/uL PT > 90.0 H INR > 9.6 H* APTT 76.5 H* PTT Ratio 2.8 Sodium (136-145) mmol/L Potassium (3.5-5.1) mmol/L Chloride (98-107) mmol/L Carbon Dioxide (21-32) mmol/L Anion Gap (3-11) BUN (6-23) mg/dl Creatinine (0.6-1.2) mg/dl Est Cr Clr Drug Dosing Est GFR ( Amer) ml/min Est GFR (Non-Af Amer) ml/min BUN/Creatinine Ratio (10-20) Glucose (70-99(Fasting)) mg/dl Calcium (8.5-10.1) mg/dl Total Bilirubin (0.2-1.0) mg/dl AST (13-39) U/L ALT (7-52) U/L Alkaline Phosphatase (34-104) U/L Total Protein (6.0-8.3) gm/dl Albumin (3.4-5.0) gm/dl Globulin (2.5-4.0) gm/dl Albumin/Globulin Ratio (0.9-2) SARS-CoV-2, RNA, NAAT NEGATIVE (NEGATIVE) Imaging Data Radiologist's Impression: Head CT 09/06/22 12:[address] DOSE: 537.48 mGy.cm HISTORY: Head injury. Fall TECHNIQUE: Multiaxial CT images of the head were performed without the use of intravenous contrast. Automated exposure control was utilized for this study. A dose lowering technique was utilized adhering to the principles of ALARA. Comparison: Head CT 10/20/2021. Findings: The paranasal sinuses and mastoid air cells are clear. The calvarium and skull base are intact. The ventricles and sulci are within normal limits. There is no mass, hematoma, midline shift, or acute infarct. Impression: No acute intracranial abnormality. ACT 112: Negative or not required by law. Electronically signed by: Jagdeep Trejo M.D. 09/06/2022 1:37 PM Knee X-Ray 09/06/22 12:27 LEFT KNEE 3 VIEWS CLINICAL HISTORY: Fall with left knee pain. FINDINGS: AP, crosstable lateral, and sunrise views of the left knee are obtained. No prior studies are available for comparison at the time of dictation. The skeletal structures are well mineralized. No fracture is seen. Mild degenerative change is seen at the patellofemoral articulation. The medial and lateral joint spaces are maintained. There are tiny marginal osteophytes. No joint effusion is identified. The overlying soft tissues are within normal limits. IMPRESSION: No acute bony abnormality is identified. Electronically signed by: Christopher Schofield M.D. 09/06/2022 1:15 PM Knee X-Ray 09/06/22 12:27 XR knee RT 3V CLINICAL HISTORY: Right knee pain following fall. COMPARISON: None FINDINGS: Mild valgus deformity is noted. Alignment of the right knee is otherwise anatomic. There is a trace joint effusion. Moderate to severe patellofemoral compartment osteoarthritis is noted. A few joint bodies measure up to 8 mm. Medial and lateral compartment joint spaces are preserved. However, there is moderate osteophytosis within the lateral compartment and mild oste ophytosis within the medial compartment. IMPRESSION: 1. No acute fracture. 2. Moderate to severe patellofemoral compartment osteoarthritis. Moderate lateral compartment osteoarthritis. 3. Several joint bodies measuring up to 8 mm. ACT 112: Negative or not required by law. Electronically signed by: Karthikeyan Moreno M.D. 09/06/2022 1:12 PM MDM Narrative Patient was seen and evaluated as above in room D03. Review was performed of nursing notes and vital signs. I did review pertinent previous visits and patient history. After obtaining a thorough history and physical examination the above work up was performed. Patient presents to us today status post fall. Clinically she is well-appearing and nontoxic. Options of care were discussed with the patient. IV access was established. Labs were drawn. No leukocytosis or concerning anemia. No emergent metabolic disturbance. CT imaging of the head was felt to be warranted noting her supratherapeutic INR in the setting of striking the head status post fall today. This was essentially negative for any acute traumatic process. Left knee and right knee x-rays were obtained. No fractures. The patient's returned case inspector is at bedside. I did have her ar manager also meet with patient's returned case inspector to help identify options for the patient in the outpatient setting. Patient desired to be discharged at that point and was using a walker without issue. However, INR was obtained and was found to be greater than 9.6. In the setting of the patient falling twice today, living alone, striking the head I am concerned about the patient going home with the value being this elevated. I discussed this with ED pharmacist and subsequently Dr. Sánchez. We were in agreement with 5 mg of IV vitamin K. This was to reverse the patient's warfarin. Recheck in 6 hours was felt to be reasonable. It is imperative that the patient has the INR rechecked tomorrow. I attempted to arrange this in the outpatient setting for the patient tomorrow at 11 AM and was able to call [facility] to arrange this for the patient. I then went to bedside and informed the patient upon this as she was initially happy with this plan but notes that she also try to making phone calls to arrange transportation and is not able to do so for tomorrow. At this point I find it best to monitor the patient overnight, recheck her INR, and continue to evaluate for any delayed bleeding. Case discussed with the hospitalist. Please refer to further documentation regarding her stay. Case was discussed with the attending physician. GCS: 15 In the evaluation and treatment of this patient the following differential diagnoses were entertained: Acute intracranial process, fracture, dislocation, subluxation, contusion, sprain, strain, among others. Impression & Plan Fall, Supratherapeutic INR, Contusion of hand, right, Cat bite of finger, Bilateral knee pain Discharge Plan Visit Data Chief Complaint: Knee Injury/Pain ED Provider: Gerald Saenz ED Midlevel Provider: Malachi Olmstead Discharge Problem: Fall, Supratherapeutic INR, Contusion of hand, right, Cat bite of finger, Bilateral knee pain Patient Disposition: Admitted As Inpatient Condition: Good Forms Stand Alone Forms: [facility] Prescriptions Prescriptions: No Action lisinopril 10 mg tablet 10 mg PO QAM metronidazole 0.75 % cream 1 applic topical QAM cholecalciferol (vitamin D3) [Vitamin D3] 2,000 unit capsule 1 tab PO QAM albuterol sulfate 90 mcg/actuation Hfa Aerosol Inhaler 2 puff inhalation Q4H PRN (Reason: Shortness Of Breath Or Wheezing) Rx Instructions: pt states she thinks she used it about 1 week ago sertraline 50 mg Tablet 50 mg PO QAM metoprolol succinate 25 mg Tablet Extended Release 24 Hr 25 mg PO QAM atorvastatin 20 mg Tablet 20 mg PO PM warfarin 5 mg Tablet 10 mg PO 4XWK Label Comments: takes on mon/wed/fri/sat warfarin 5 mg Tablet 7.5 mg PO 3XWK Label Comments: leesa/brenton/jory Referrals Referrals: Alia Mcdonough MD [Primary Care Provider] -
[2022-09-06 12:58] LABS: Basophils # (auto) 0.02 K/uL (0-0.2); Basophils % (auto) 0.3 %; Eosinophils # (auto) 0.03 K/uL (0-0.50); Eosinophils % (auto) 0.5 %; Hematocrit (blood only) 37.2 % (34.1-44.9); Hemoglobin 12.1 g/dl (12.0-16.0); Immature Granulocytes # (auto) 0.02 K/uL (0.00-0.02); Immature Granulocytes % (auto) 0.3 %; Lymphocytes # (auto) 1.49 K/uL (1.2-3.4); Lymphocytes % (auto) 23.2 %; Mean Corpuscular Hgb Conc 32.5 g/dL (32.0-36.0); Mean Corpuscular Volume 86.1 fL (80.0-100.0); Mean Platelet Volume 11.1 fL (9.4-12.3); Monocytes % (auto) 9.4 %; Neutrophils # (auto) 4.25 K/uL (1.4-6.5); Neutrophils % (auto) 66.3 %; Platelet Count 179 K/uL (130-400); RDW Standard Deviation 47.8 fL (36.4-46.3); Red Blood Count 4.32 M/uL (3.93-5.22); White Blood Count 6.41 K/ul (4.8-10.8)
--- NOTE | 2022-09-06 13:13 | XRay Report ---
XR knee RT 3V CLINICAL HISTORY: Right knee pain following fall. COMPARISON: None FINDINGS: Mild valgus deformity is noted. Alignment of the right knee is otherwise anatomic. There i s a trace joint effusion. Moderate to severe patellofemoral compartment osteoarthritis is noted. A fe w joint bodies measure up to 8 mm. Medial and lateral compartment joint spaces are preserved. However , there is moderate osteophytosis within the lateral compartment and mild osteophytosis within the me dial compartment. IMPRESSION: 1. No acute fracture. 2. Moderate to severe patellofemoral compartment osteoarthritis. Moderate lateral compartment osteoar thritis. 3. Several joint bodies measuring up to 8 mm. ACT 112: Negative or not required by law. Electronically signed by: Karthikeyan oMreno M.D. 09/06/2022 1:12 PM
--- NOTE | 2022-09-06 13:16 | XRay Report ---
LEFT KNEE 3 VIEWS CLINICAL HISTORY: Fall with left knee pain. FINDINGS: AP, crosstable lateral, and sunrise views of the left knee are obtained. No prior studies a re available for comparison at the time of dictation. The skeletal structures are well mineralized. N o fracture is seen. Mild degenerative change is seen at the patellofemoral articulation. The medial a nd lateral joint spaces are maintained. There are tiny marginal osteophytes. No joint effusion is naila ntified. The overlying soft tissues are within normal limits. IMPRESSION: No acute bony abnormality is identified. Electronically signed by: Christopher Schofield M.D. 09/06/2022 1:15 PM
[2022-09-06 13:28] LABS: Alanine Aminotransferase 13 U/L (7-52); Albumin Globulin Ratio 1.4 (0.9-2); Albumin Level 4.1 gm/dl (3.4-5.0); Alkaline Phosphatase 103 U/L (34-104); Anion Gap 10 (3-11); Aspartate Aminotransferase 17 U/L (13-39); BUN Creatinine Ratio 18.7 (10-20); Bilirubin,Total 0.8 mg/dl (0.2-1.0); Blood Urea Nitrogen 14 mg/dl (6-23); Calcium 8.5 mg/dl (8.5-10.1); Carbon Dioxide 25 mmol/L (21-32); Chloride 105 mmol/L (98-107); Est GFR (African American) 103.3 ml/min; Est GFR (Non-African American) 89.1 ml/min; Glucose 97 mg/dl (70-99(Fasting)); Potassium 3.7 mmol/L (3.5-5.1); Sodium 140 mmol/L (136-145); Total Protein 7.1 gm/dl (6.0-8.3)
--- NOTE | 2022-09-06 13:40 | CT Scan Report ---
HEAD CT NONCONTRAST CT DOSE: 537.48 mGy.cm HISTORY: Head injury. Fall TECHNIQUE: Multiaxial CT images of the head were performed without the use of intravenous contrast. A utomated exposure control was utilized for this study. A dose lowering technique was utilized adheri ng to the principles of ALARA. Comparison: Head CT 10/20/2021. Findings: The paranasal sinuses and mastoid air cells are clear. The calvarium and skull base are int act. The ventricles and sulci are within normal limits. There is no mass, hematoma, midline shift, or acute infarct. Impression: No acute intracranial abnormality. ACT 112: Negative or not required by law. Electronically signed by: Jagdeep Trejo M.D. 09/06/2022 1:37 PM
[2022-09-06 14:51] LABS: Partial Thromboplastin Ratio 2.8; Prothrombin Time > 90.0 Seconds (9.0-12.0)
--- NOTE | 2022-09-06 15:08 | Emergency Department Note ---
ED Visit Note Physician Evaluation Note: I have personally evaluated and examined this patient. I agree with assessment and plan of Malachi Olmstead PA-C. Patient with multiple falls and head injuries arrives following a fall at home. She has some home health care and case management but does not have 24/ care. Patient has CT of the head and bilateral knees without injury. There is a significantly elevated INR which has me concerned that she may not be taking her medication properly. Case was discussed between case liner as well as myself and case management. After further discussions plan will be to bring her in as she will need close monitoring given the significantly elevated INR and management of this abnormal lab testing I will not be able to be done as an outpatient at this time. Gerald Saenz MD
[2022-09-06 15:11] LABS: INR > 9.6 (0.9-1.1); Partial Thromboplastin Time 76.5 Seconds (21.0-31.0)
[2022-09-06] MEDS ORDERED: PHYTONADIONE 5 MG in DEXTROSE 5% 50 ML IV ONE (15:53)
--- NOTE | 2022-09-06 17:09 | History & Physical Report ---
Date of Service September 06, 2022 Assessment & Plan (1) Fall: Plan: Ambulatory dysfunction Multiple mechanical falls --CT Head:No acute intracranial abnormality. --Left Knee X ray:No acute bony abnormality is identified. --Right Knee X ray:No acute fracture. Moderate to severe patellofemoral compartment osteoarthritis. Moderate lateral compartment osteoarthritis. Several joint bodies measuring up to 8 mm. -- Fall precautions PT OT eval Will need rehab placement Supratherapeutic INR Received vitamin K Hold Coumadin Denies any bleeding issues Monitor INR Hypertension Continue lisinopril, metoprolol Paroxysmal atrial fibrillation Continue metoprolol Hold Coumadin due to supratherapeutic INR Monitor INR Rosacea Continue metronidazole cream RADHA CPAP HS Mood Disorder Continue home medication Morbid obesity Needs Counselling DVT Px: SCDs Re: Supratherapeutic INR CODE STATUS Full code History of Present Illness Chief Complaint: Falls Primary Care Provider: Alia Mcdonough MD Patient is a 57-year-old female with history of morbid obesity, paroxysmal atrial fibrillation on chronic anticoagulation with Coumadin, hypertension, dyslipidemia, rosacea, obstructive sleep apnea on CPAP, generalized anxiety disorder and other medical problems presents with history of multiple falls. Patient has been following with chiropractor and orthopedics for bilateral knee pain and she states that her knees lock with ambulation resulting in falls. States that her right knee locks more than her left. Currently has been using umbrella to help with ambulation. As per the patient, patient was thought to be started on physical therapy and if no improvement, plan was to give steroid injection to the knee. Reports having a fall today resulting pain hitting her back of her head and bilateral knees. Also reports a fall 2 days ago resulting in bumping her forehead against the freezer. She was noted to be supratherapeutic while in ED. She denies any bleeding issues. She admits to missing her last 2 appointments with Coumadin clinic. Denies any history of chest pain, dyspnea, dizziness, cough, hemoptysis, fever, chills, loss of consciousness, headache, weakness, change in vision, nausea, vomiting, abdominal pain, diarrhea, dysuria, hematuria. Allergies Allergy/AdvReac Type Severity Reaction Status Date / Time No Known Allergies Allergy Verified 12/23/20 09:14 NONE ALL TO MERSALINE Allergy Unknown . Uncoded 12/23/20 09:14 STICHES -THEY COME OUT, ARE REJECTED Home Medications Medication Instructions Recorded Confirmed Type albuterol sulfate 90 mcg/actuation 2 puff inhalation Q4H PRN 02/06/19 09/06/22 History aerosol inhaler Shortness Of Breath Or Wheezing cholecalciferol (vitamin D3) 50 1 tab PO QAM 02/06/19 09/06/22 History mcg (2,000 unit) capsule (Vitamin D3) lisinopril 10 mg tablet 20 mg PO QAM 02/06/19 09/06/22 History metronidazole 0.75 % topical cream 1 applic topical BID face/cheeks 02/06/19 09/06/22 History atorvastatin 20 mg tablet 40 mg PO PM 11/28/20 09/06/22 History metoprolol succinate 25 mg 25 mg PO QAM 11/28/20 09/06/22 History tablet,extended release 24 hr warfarin 5 mg tablet 7.5 mg PO 3XWK 11/28/20 09/06/22 History warfarin 5 mg tablet 10 mg PO 4XWK 11/28/20 09/06/22 History fluvoxamine 100 mg tablet 100 mg PO HS 09/06/22 09/06/22 History Past Med/Surg History Medical History Atrial fibrillation follows with Dr. North--on warfarin Borderline diabetes mellitus Congestive heart failure Depression History of anesthesia reaction woke up during surgical procedures Intellectual disability Morbid obesity with BMI of 45.0-49.9, adult Obesity Osteoarthritis Sleep apnea cpap Surgical History History of colonoscopy with polypectomy History of left cataract extraction History of wisdom tooth extraction S/P hysterectomy done when patient was a teenager for tumor--rae bso S/P knee surgery right Family History Other Cancer Coronary heart disease No family history of adverse response to anesthesia Social History Smoking Status: Never smoker Second Hand Exposure: No; Hx Alcohol Use: No Hx Substance Use: No Preferred Language: Swedish Communication Ability: Effective Hearing Ability: Normal 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 Beliefs That Will Affect Care: None marital status: Single Current Living Situation: Alone current occupational status: disabled Feels Safe at Home: Yes Assistive Devices: CPAP and Glasses Review of Systems Review of Systems: All systems reviewed & are unremarkable except as noted in Subjective Physical Exam Physical Exam: Physical Exam: Vitals signs as noted above General Appearance:Morbidly Obese, no apparent distress Head: normocephalic, +traumatic-forehead abrasion Eyes: normal inspection, EOMI Neck: supple, Trachea midline Respiratory/Chest: Normal breath sounds, CTA, No accessory muscle use Cardiovascular: S1, S2, No murmur Abdomen/GI:Soft, Non tender, Bowel sounds present Extremities/Musculoskeletal:normal inspection, no edema Neurologic/Psych:AAOX3, grossly no focal neurological deficits Skin: normal color, warm, right knee well-healed surgical scar Results & Data Results & Data ([facility]) Vital Signs (Past 12 Hours) Vital Signs Temp Pulse Pulse Resp BP BP Pulse Ox 09/06/22 14:20 70 18 166/109 H 97 09/06/22 12:04 36.5 C 60 20 108/72 98 O2 Del Method 09/06/22 14:20 Room Air 09/06/22 12:04 Laboratory Results Short CBC 09/06/22 Range/Units 12:30 WBC 6.41 (4.8-10.8) K/ul Hgb 12.1 (12.0-16.0) g/dl Hct 37.2 (34.1-44.9) % Plt Count 179 (130-400) K/uL BMP 09/06/22 12:30 Sodium 140 Potassium 3.7 Chloride 105 Carbon Dioxide 25 BUN 14 Creatinine 0.75 Glucose 97 Calcium 8.5 Liver Function 09/06/22 Range/Units 12:30 Total Bilirubin 0.8 (0.2-1.0) mg/dl AST 17 (13-39) U/L ALT 13 (7-52) U/L Alkaline Phosphatase 103 (34-104) U/L Albumin 4.1 (3.4-5.0) gm/dl
[2022-09-06] MEDS ORDERED: ACETAMINOPHEN 325 MG TAB PO PRN (20:49)
[2022-09-06] MEDS ORDERED: ALBUTEROL HFA 8 GM INHALER INH PRN (20:49)
[2022-09-06] MEDS ORDERED: POLYETHYLENE (MIRALAX) 17 GM PACK PO PRN (20:49)
[2022-09-06] MEDS ORDERED: ONDANSETRON INJ 2 MG/ML 2 ML VIAL IV PRN (20:49)
[2022-09-06] MEDS ORDERED: fluvoxaMINE MALEATE 50 MG TAB PO SCH (21:00)
[2022-09-06] MEDS ORDERED: ATORVASTATIN 40 MG TAB PO SCH (21:00)
[2022-09-06] MEDS: metroNIDAZOLE 0.75% TOPICAL GEL 45 GM TUBE TOP SCH (23:03)
[2022-09-07] MEDS: metroNIDAZOLE 0.75% TOPICAL GEL 45 GM TUBE TOP SCH (08:20)
[2022-09-07] MEDS ORDERED: METOPROLOL SUCC 25MG EXT REL TAB PO SCH (09:00)
[2022-09-07] MEDS ORDERED: lisinopril 20 MG TAB PO SCH (09:00)
[2022-09-07] MEDS ORDERED: CHOLECALCIFEROL 1,000 UNITS 25 MCG TAB PO SCH (09:00)
[2022-09-07 09:06] LABS: Hematocrit (blood only) 40.3 % (34.1-44.9); Hemoglobin 12.9 g/dl (12.0-16.0); Mean Corpuscular Hemoglobin 27.8 pg (25.0-34.0); Mean Corpuscular Volume 86.9 fL (80.0-100.0); Mean Platelet Volume 10.9 fL (9.4-12.3); Platelet Count 186 K/uL (130-400); RDW Coefficient of Variation 15.3 % (11.5-14.5); RDW Standard Deviation 48.3 fL (36.4-46.3); Red Blood Count 4.64 M/uL (3.93-5.22)
[2022-09-07 09:12] LABS: BUN Creatinine Ratio 18.8 (10-20); Calcium 8.6 mg/dl (8.5-10.1); Creatinine Clr Calc Pharmacy 125.4 ml/min; Est GFR (African American) 115.6 ml/min; Est GFR (Non-African American) 99.8 ml/min; Potassium 3.6 mmol/L (3.5-5.1)
[2022-09-07 09:17] LABS: INR 1.5 (0.9-1.1); Prothrombin Time 15.7 Seconds (9.0-12.0)
--- NOTE | 2022-09-07 13:32 | Hospitalist Progress Note ---
Date of Service September 07, 2022 Assessment & Plan (1) Fall: Plan: Ambulatory dysfunction Multiple mechanical falls --CT Head:No acute intracranial abnormality. --Left Knee X ray:No acute bony abnormality is identified. --Right Knee X ray:No acute fracture. Moderate to severe patellofemoral compartment osteoarthritis. Moderate lateral compartment osteoarthritis. Several joint bodies measuring up to 8 mm. -- Fall precautions PT OT eval Will need walker on discharge Supratherapeutic INR Received vitamin K Denies any bleeding issues Monitor INR >9.6>1.5 Resume Coumadin today Advised to follow up with Coumadin Clinic upon discharge Hypertension Continue lisinopril, metoprolol Paroxysmal atrial fibrillation Continue metoprolol, Coumadin Rosacea Continue metronidazole cream RADHA CPAP HS Mood Disorder Continue home medication Morbid obesity Needs Counselling DVT Px: Coumadin CODE STATUS Full code Admission and Anticipated Discharge Date Admission Date: September 06, 2022 Subjective Patient is seen and examined at bedside States feeling well today Offers no complaints Denies any chest pain, shortness of breath, dizziness, nausea, abdominal pain INR subtherapeutic today Also denies any bleeding issues Review of Systems Review of Systems: All systems reviewed & are unremarkable except as noted in Subjective Physical Exam Physical Exam: Physical Exam: Vitals signs as noted above General Appearance:Morbidly Obese, no apparent distress Head: normocephalic, +traumatic-forehead abrasion Eyes: normal inspection, EOMI Neck: supple, Trachea midline Respiratory/Chest: Normal breath sounds, CTA, No accessory muscle use Cardiovascular: S1, S2, No murmur Abdomen/GI:Soft, Non tender, Bowel sounds present Extremities/Musculoskeletal:normal inspection, no edema Neurologic/Psych:AAOX3, grossly no focal neurological deficits Skin: normal color, warm, right knee well-healed surgical scar Results & Data Results & Data ([facility]) Vital Signs (Past 12 Hours) Vital Signs Temp Pulse Resp BP Pulse Ox O2 Del Method FiO2 09/07/22 07:39 37.1 C 52 L 18 126/76 96 Room Air 09/07/22 04:04 17 21 Laboratory Results Short CBC 09/07/22 Range/Units 08:34 WBC 6.70 (4.8-10.8) K/ul Hgb 12.9 (12.0-16.0) g/dl Hct 40.3 (34.1-44.9) % Plt Count 186 (130-400) K/uL [facility] 09/07/22 08:34 Sodium 140 Potassium 3.6 Chloride 105 Carbon Dioxide 28 BUN 12 Creatinine 0.64 Glucose 87 Calcium 8.6
--- NOTE | 2022-09-07 15:58 | Discharge Summary ---
Date of Service September 07, 2022 Admission HPI Per Admitting Provider Patient is a 57-year-old female with history of morbid obesity, paroxysmal atrial fibrillation on chronic anticoagulation with Coumadin, hypertension, dyslipidemia, rosacea, obstructive sleep apnea on CPAP, generalized anxiety disorder and other medical problems presents with history of multiple falls. Patient has been following with chiropractor and orthopedics for bilateral knee pain and she states that her knees lock with ambulation resulting in falls. States that her right knee locks more than her left. Currently has been using umbrella to help with ambulation. As per the patient, patient was thought to be started on physical therapy and if no improvement, plan was to give steroid injection to the knee. Reports having a fall today resulting pain hitting her back of her head and bilateral knees. Also reports a fall 2 days ago resulting in bumping her forehead against the freezer. She was noted to be supratherapeutic while in ED. She denies any bleeding issues. She admits to missing her last 2 appointments with Coumadin clinic. Denies any history of chest pain, dyspnea, dizziness, cough, hemoptysis, fever, chills, loss of consciousness, headache, weakness, change in vision, nausea, vomiting, abdominal pain, diarrhea, dysuria, hematuria. Admission Exam Per Admitting Provider Physical Exam: Vitals signs as noted above General Appearance:Morbidly Obese, no apparent distress Head: normocephalic, +traumatic-forehead abrasion Eyes: normal inspection, EOMI Neck: supple, Trachea midline Respiratory/Chest: Normal breath sounds, CTA, No accessory muscle use Cardiovascular: S1, S2, No murmur Abdomen/GI:Soft, Non tender, Bowel sounds present Extremities/Musculoskeletal:normal inspection, no edema Neurologic/Psych:AAOX3, grossly no focal neurological deficits Skin: normal color, warm, right knee well-healed surgical scar Principal Diagnosis Ambulatory dysfunction Mechanical fall Supratherapeutic INR Discharge Data Allergies Allergy/AdvReac Type Severity Reaction Status Date / Time No Known Allergies Allergy Verified 12/23/20 09:14 NONE ALL TO MERSALINE Allergy Unknown . Uncoded 12/23/20 09:14 STICHES -THEY COME OUT, ARE REJECTED Consultations 09/06/22 16:43 ED Decision to Admit Stat Procedures Performed Laboratory Results WBC 6.70 K/ul (4.8-10.8) 09/07/22 08:34 RBC 4.64 M/uL (3.93-5.22) 09/07/22 08:34 Hgb 12.9 g/dl (12.0-16.0) 09/07/22 08:34 Hct 40.3 % (34.1-44.9) 09/07/22 08:34 MCV 86.9 fL (80.0-100.0) 09/07/22 08:34 MCH 27.8 pg (25.0-34.0) 09/07/22 08:34 MCHC 32.0 g/dL (32.0-36.0) 09/07/22 08:34 RDW Std Deviation 48.3 fL (36.4-46.3) H 09/07/22 08:34 RDW Coeff of Gabe 15.3 % (11.5-14.5) H 09/07/22 08:34 Plt Count 186 K/uL (130-400) 09/07/22 08:34 MPV 10.9 fL (9.4-12.3) 09/07/22 08:34 Immature Gran % (Auto) 0.3 % 09/06/22 12:30 Neut % (Auto) 66.3 % 09/06/22 12:30 Lymph % (Auto) 23.2 % 09/06/22 12:30 Lucas % (Auto) 9.4 % 09/06/22 12:30 Eos % (Auto) 0.5 % 09/06/22 12:30 Baso % (Auto) 0.3 % 09/06/22 12:30 Neut # (Auto) 4.25 K/uL (1.4-6.5) 09/06/22 12:30 Lymph # (Auto) 1.49 K/uL (1.2-3.4) 09/06/22 12:30 Lucas # (Auto) 0.60 K/uL (0.24-0.82) 09/06/22 12:30 Eos # (Auto) 0.03 K/uL (0-0.50) 09/06/22 12:30 Baso # (Auto) 0.02 K/uL (0-0.2) 09/06/22 12:30 Immature Gran # (Auto) 0.02 K/uL (0.00-0.02) 09/06/22 12:30 PT 15.7 Seconds (9.0-12.0) H 09/07/22 08:34 INR 1.5 (0.9-1.1) H 09/07/22 08:34 APTT 76.5 Seconds (21.0-31.0) H* 09/06/22 13:52 PTT Ratio 2.8 09/06/22 13:52 Sodium 140 mmol/L (136-145) 09/07/22 08:34 Potassium 3.6 mmol/L (3.5-5.1) 09/07/22 08:34 Chloride 105 mmol/L (98-107) 09/07/22 08:34 Carbon Dioxide 28 mmol/L (21-32) 09/07/22 08:34 Anion Gap 7 (3-11) 09/07/22 08:34 BUN 12 mg/dl (6-23) 09/07/22 08:34 Creatinine 0.64 mg/dl (0.6-1.2) 09/07/22 08:34 Est Cr Clr Drug Dosing 125.4 ml/min 09/07/22 08:34 Est GFR ( Amer) 115.6 ml/min 09/07/22 08:34 Est GFR (Non-Af Amer) 99.8 ml/min 09/07/22 08:34 BUN/Creatinine Ratio 18.8 (10-20) 09/07/22 08:34 Glucose 87 mg/dl (70-99(Fasting)) 09/07/22 08:34 Calcium 8.6 mg/dl (8.5-10.1) 09/07/22 08:34 Total Bilirubin 0.8 mg/dl (0.2-1.0) 09/06/22 12:30 AST 17 U/L (13-39) 09/06/22 12:30 ALT 13 U/L (7-52) 09/06/22 12:30 Alkaline Phosphatase 103 U/L (34-104) 09/06/22 12:30 Total Protein 7.1 gm/dl (6.0-8.3) 09/06/22 12:30 Albumin 4.1 gm/dl (3.4-5.0) 09/06/22 12:30 Globulin 3.0 gm/dl (2.5-4.0) 09/06/22 12:30 Albumin/Globulin Ratio 1.4 (0.9-2) 09/06/22 12:30 SARS-CoV-2, RNA, NAAT NEGATIVE (NEGATIVE) 09/06/22 16:[address] 09/06/22 12:[address] DOSE: 537.48 mGy.cm HISTORY: Head injury. Fall TECHNIQUE: Multiaxial CT images of the head were performed without the use of intravenous contrast. Automated exposure control was utilized for this study. A dose lowering technique was utilized adhering to the principles of ALARA. Comparison: Head CT 10/20/2021. Findings: The paranasal sinuses and mastoid air cells are clear. The calvarium and skull base are intact. The ventricles and sulci are within normal limits. There is no mass, hematoma, midline shift, or acute infarct. Impression: No acute intracranial abnormality. ACT 112: Negative or not required by law. Electronically signed by: Jagdeep Trejo M.D. 09/06/2022 1:37 PM Knee X-Ray 09/06/22 12:27 LEFT KNEE 3 VIEWS CLINICAL HISTORY: Fall with left knee pain. FINDINGS: AP, crosstable lateral, and sunrise views of the left knee are obtained. No prior studies are available for comparison at the time of dictation. The skeletal structures are well mineralized. No fracture is seen. Mild degenerative change is seen at the patellofemoral articulation. The medial and lateral joint spaces are maintained. There are tiny marginal osteophytes. No joint effusion is identified. The overlying soft tissues are within normal limits. IMPRESSION: No acute bony abnormality is identified. Electronically signed by: Christopher Schofield M.D. 09/06/2022 1:15 PM Ordered Studies 09/06/22 12:27 CT head/brain wo con Stat Hospital Course (1) Fall: Ambulatory dysfunction Multiple mechanical falls --CT Head:No acute intracranial abnormality. --Left Knee X ray:No acute bony abnormality is identified. --Right Knee X ray:No acute fracture. Moderate to severe patellofemoral compartment osteoarthritis. Moderate lateral compartment osteoarthritis. Several joint bodies measuring up to 8 mm. -- Fall precautions PT OT eval Plan to discharge home with HH Supratherapeutic INR Received vitamin K Denies any bleeding issues Monitor INR >9.6>1.5 Resume Coumadin today Advised to follow up with Coumadin Clinic upon discharge Hypertension Continue lisinopril, metoprolol Paroxysmal atrial fibrillation Continue metoprolol, Coumadin Rosacea Continue metronidazole cream RADHA CPAP HS Mood Disorder Continue home medication Morbid obesity Needs Counselling DVT Px: Coumadin CODE STATUS Full code Total Time Total Time Spent Total Time Spent (In Minutes): 45 minutes Discharge Plan Discharge Items Patient Disposition: Home - Home Health Services Reason For Visit: FALL Discharge Diagnosis: Ambulatory dysfunction Mechanical fall Supratherapeutic INR Condition on Discharge: Good Activity: Per Instructions section Exercise/Sports: Gradually increase as tolerated Non-emergency contact: Primary Care Provider and Specialist Call non-emergency contact if: you have any medication questions, your symptoms worsen, your pain is concerning for you and you have a fever Follow-up/Referrals: Alia Mcdonough MD [Primary Care Provider] - (Date & Time 09/08/2022 8:00 AM Provider Pascual Bey PA-C Department General Internal Medicine [facility] Date & Time 09/08/2022 9:50 AM Provider [facility] ) Diet: Heart Healthy Addtl Attending Provider Instructions: Follow-up with your primary care physician on 09/08/2022 8:00 AM Follow-up with Coumadin clinic as advised for managing your Coumadin dose and monitoring your PT/INR in 1-2 days Follow up with your Orthopedic surgeon as scheduled --You received 5mg Coumadin today --Get Blood Test( PT/INR) tomorrow (09/08/22) and follow up with Coumadin Clinic for adjusting your Coumadin dose Seek immediate medical attention if your symptoms reoccur or worsen Please take all medications as instructed on discharge list below. Please call if you have any questions or problems. You can reach a [facility] hospitalist on duty at [facility] 24 hours a day by calling [phone] Pending Studies at Discharge: No Stand-Alone Forms: My [facility] Xenapto, Smoking Cessation Medications and DC Order Prescriptions: Continued lisinopril 10 mg tablet 20 mg PO QAM metronidazole 0.75 % cream 1 applic topical BID cholecalciferol (vitamin D3) [Vitamin D3] 2,000 unit capsule 1 tab PO QAM albuterol sulfate 90 mcg/actuation Hfa Aerosol Inhaler 2 puff inhalation Q4H PRN (Reason: Shortness Of Breath Or Wheezing) Rx Instructions: pt states she thinks she used it about 1 week ago fluvoxamine 100 mg tablet 100 mg PO HS metoprolol succinate 25 mg Tablet Extended Release 24 Hr 25 mg PO QAM atorvastatin 20 mg Tablet 40 mg PO PM warfarin 5 mg Tablet 10 mg PO [id number] Label Comments: takes on tue/tue/tue/tue warfarin 5 mg Tablet 7.5 mg PO [id number] Label Comments: tue//tue Discharge Orders: Discharge Order (Routine); Ordered 09/07/22 Ordered By: Jas Blanca Admission Data Admit Date/Time: 09/06/22 17:48 Attending Provider: Jas Blanca Admit Provider: Jas Blanca Primary Care Provider: Alia Mcdonough Other Providers: Jas Blanca
[2022-09-07] MEDS ORDERED: WARFARIN SOD 5 MG TAB PO SCH (16:00)
== END 2022-09-07 17:26 | disposition home health service (06) ==
LOC: ED 11:59 → EDINP 11:59 → 3N 20:50